=== PATIENT | female | born 1970 | race Caucasian/White ===

== ENCOUNTER 2020-01-23 07:51 | Outpatient (CLI) | payer BC, SELFPAY ==
--- NOTE | 2020-01-23 07:58 | MM_ITS ---
WS: [id number] BILATERAL DIGITAL SCREENING MAMMOGRAPHY WITH CAD CLINICAL INFORMATION: SCREENING HISTORY: Screening mammogram. No current complaints. COMPARISON: TECHNIQUE: Bilateral CC and MLO views. FINDINGS: Scattered fibroglandular densities bilaterally. No suspicious focal mass, asymmetry, calcifications, or architectural distortion. No evidence of malignancy. Biopsy clip left breast MM/[id number] IMPRESSION: BI-RADS: 2-Benign FOLLOW UP: 1 Year Follow-up Recommend return to annual screening mammography.
== END 2020-01-23 07:52 | disposition home or self-care (01) ==
LOC: RADSHAW 07:53
PROVIDERS: Family Provider Family Medicine; PCP Family Medicine; Visit Provider Obstetrics & Gynecology
DX: Z12.31 Encounter for screening mammogram for malignant neoplasm of breast (principal)
CPT/HCPCS: 77067

== ENCOUNTER → 2020-01-27 00:01 | Outpatient (BNVA) | payer BC, SELFPAY | PROVIDERS: Family Provider Family Medicine; PCP Family Medicine; Visit Provider Obstetrics & Gynecology | DX: Z12.4 Encounter for screening for malignant neoplasm of cervix (principal); Z30.9 Encounter for contraceptive management, unspecified | CPT/HCPCS: 88175 ==

== ENCOUNTER 2020-04-24 09:43 | Day surgery (SDC) | payer BC, SELFPAY ==
[2020-04-22 12:46] VITALS: BMI 31.7
--- NOTE | 2020-04-24 10:11 | ANES.PREANE2 ---
Pre-Anesthetic Assessment Pre-Anesthetic Assessment: Height/Weight: Height 1.63 m Weight 83.915 kg Proposed Procedure: Operation Date: 04/24/20 11:30 Proposed Procedures p Colonoscopy 69154 Z12.11(Not Applicable) - Agusto Cardoso MD Was Beta Roscoe taken within 24 hours: N/A Social: Social History: No alcohol and No tobacco Exam: Pre-Anes Outpt Exam: alert, oriented x 3, clear to auscultation bilaterally and regular rate & rhythm Airway: Submandibular: WNL Cervical ROM: WNL MP: 2 Dentition: Full History/ROS: No significant history except as noted Neuropsych: Neuropsych: Anxiety Anesthetic Plan: ASA status: 2 Anesthesia: MAC Risk of > 500 ml blood loss (7ml/kg in children): No PFSH Anesthesia PFSH: Medical History Anxiety Diagnosed in 2019 and being managed by PMD Dr. Carrion and is currently on [id number] states that this also helps with her hot flashes No pertinent past medical history Denies diabetes, asthma, hypertension, seizures, DVT/PE PCP: Dr. Carrion Surgical History S/P sinus surgery Done for sinusitis and had multiple polyps removed in June 2018. Status post surgical removal of ganglion cyst removed from left wrist as a child Family History Father Stroke Hypertension Prostate cancer Heart disease Denies family history of Colon cancer Ovarian cancer Diabetes Hyperlipidemia Breast cancer Uterine cancer Thyroid condition Social History (System 04/23/20 @ 14:30 by Annmarie Ramos) Smoking and tobacco status: never smoked Alcohol intake: current Alcohol intake frequency: few times a week Data Anesthesia Cardiac Studies: No Data to Display
[2020-04-24 11:04] VITALS: BP 118/89; PULSE 79; RESP 18; TEMP 36.1; O2SAT 99
[2020-04-24] MEDS: sodium chloride 0.9% 1,000 ML 30 ML IV (11:27)
--- NOTE | 2020-04-24 12:21 | W.PM.OPSFHP ---
Same Day Surgery H&P Indication for Procedure/HPI DATE OF PROCEDURE: April 24, 2020 CHIEF COMPLAINT/INDICATIONFOR SURGICAL PROCEDURE: Screening colonoscopy PREOP DIAGNOSIS: Screening colonoscopy PLANNED PROCEDRUE: Operation Date: 04/24/20 11:30 Proposed Procedures p Colonoscopy 81163 Z12.11(Not Applicable) - Agusto Cardoso MD Medications/Allergies* Home Medications Medication Instructions Recorded Confirmed Type omega-3 fatty acids [Fish Oil] 500 mg PO DAILY 04/24/20 04/24/20 History Allergies/Adverse Reactions Allergy/AdvReac Type Severity Reaction Status Date / Time No Known Allergies Allergy Verified 04/23/20 14:30 Current Medications: Generic Name Dose Route Start Last Admin Trade Name Freq PRN Reason Stop Dose Admin Sodium Chloride 1,000 mls @ 30 mls/hr 04/24/20 11:15 04/24/20 11:27 Sodium Chloride 0.9% IV 04/25/20 11:14 30 mls/hr .Q24H YAMIKLA Administration Pertinent History/Comorbid Conditions* Medical History (Updated 04/20/20 @ 17:46 by Murray Sinha MD) Anxiety Diagnosed in 2019 and being managed by PMD Dr. Carrion and is currently on [id number] states that this also helps with her hot flashes No pertinent past medical history Denies diabetes, asthma, hypertension, seizures, DVT/PE PCP: Dr. Carrion Surgical History (Updated 04/24/20 @ 12:21 by Agusto Cardoso MD) S/P sinus surgery Done for sinusitis and had multiple polyps removed in June 2018. Status post colonoscopy (04/24/20) Repeat in 10 years Status post surgical removal of ganglion cyst removed from left wrist as a child Family History (Updated 01/27/20 @ 10:41 by Saumya Iraheta, DANIEL) Prostate cancer Father Heart disease Father Hypertension Father Stroke Father Denies family history of Colon cancer Ovarian cancer Diabetes Hyperlipidemia Breast cancer Uterine cancer Thyroid condition Social History Smoking and tobacco status: never smoked Alcohol intake: current Alcohol intake frequency: few times a week Pertinent Exam Findings oriented x 3 and regular rate & rhythm Recommendations Surgery/Procedure today Coding Level of Care Code Acute Knowledge Management Advisor for Wilfredo Blake
[2020-04-24 12:23] VITALS: BP 109/85; PULSE 78; RESP 16; TEMP 36.1; O2SAT 100
[2020-04-24 12:43] VITALS: BP 126/95; PULSE 81; RESP 18; O2SAT 98
--- NOTE | 2020-04-24 13:34 | ANE.PACU2 ---
Inpatient post-anesthesia follow up: Airway intact: Yes Vital signs: Temperature 97 F Pulse Rate 81 Respiratory Rate 18 Blood Pressure 126/95 Pulse Oximetry 98 Oxygen Delivery Me thod Room Air Oxygen Flow Rate 2 Fraction of Inspir ed Oxygen Hydration adequate: Yes Nausea and vomiting: No Pain level: 1 Mental status: Baseline
== END 2020-04-24 12:58 | disposition home or self-care (01) ==
PROVIDERS: PCP Family Medicine; Visit Provider Surgery
PROC: 0DJD8ZZ Inspection of Lower Intestinal Tract, Via Natural or Artificial Opening Endoscopic (ICD-10-PCS; CPT 45378; principal; 2020-04-24 11:30)
DX: Z12.11 Encounter for screening for malignant neoplasm of colon (principal); K57.30 Diverticulosis of large intestine without perforation or abscess without bleeding; K64.8 Other hemorrhoids; F41.9 Anxiety disorder, unspecified
CPT/HCPCS: 45378; 96360; J7030

== ENCOUNTER → 2020-12-28 08:09 | Outpatient (BNVA) | payer OTHER, SELFPAY | PROVIDERS: PCP Family Medicine; Visit Provider Family Medicine | DX: Z13.6 Encounter for screening for cardiovascular disorders (principal); E66.9 Obesity, unspecified | CPT/HCPCS: 80053; 80061; 82306; 85025 ==

== ENCOUNTER 2021-10-07 07:36 | Outpatient (CLI) | payer OTHER, SELFPAY ==
--- NOTE | 2021-10-07 07:44 | MM_ITS ---
WS: [id number] BILATERAL SCREENING DIGITAL TOMOSYNTHESIS MAMMOGRAM WITH CAD HISTORY: SCREENING COMPARISON: 01/23/2020 and 08/02/2018 Bilateral CC and MLO views with tomosynthesis and synthetic mammography submitted. Computer aided det ection analyzed. Breast composition: There are scattered areas of fibroglandular density. No suspicious masses, microc alcifications or architectural distortion. Biopsy clip 3:00 LEFT breast. MM/[id number] IMPRESSION: BI-RADS: 2-Benign FOLLOW UP: 1 Year Follow-up
== END 2021-10-07 07:37 | disposition home or self-care (01) ==
PROVIDERS: PCP Family Medicine; Visit Provider Family Medicine
DX: Z12.31 Encounter for screening mammogram for malignant neoplasm of breast (principal)
CPT/HCPCS: 77063; 77067

== ENCOUNTER → 2022-05-23 16:19 | Outpatient (BNVA) | payer OTHER, SELFPAY | PROVIDERS: PCP Family Medicine; Visit Provider Family Medicine | DX: Z13.6 Encounter for screening for cardiovascular disorders (principal) | CPT/HCPCS: 80053; 80061; 84443; 85025 ==

== ENCOUNTER 2023-02-02 11:39 | Outpatient (CLI) | payer OTHER, SELFPAY ==
--- NOTE | 2023-02-02 11:42 | MM_ITS ---
WS: [id number] SCREENING DIGITAL TOMOSYNTHESIS MAMMOGRAM WITH CAD HISTORY: SCREENING COMPARISON: 10/07/2021 and 01/23/2020 Bilateral CC and MLO with tomosynthesis views submitted. Synthetic mammography reviewed. Computer aid ed detection analyzed. Breast composition: Biopsy clip in the upper outer quadrant of the LEFT breast. No residual mass or c alcification. No suspicious masses, microcalcifications or architectural distortion. IMPRESSION: MM/[id number] BI-RADS: 2-Benign FOLLOW UP: 1 Year Follow-up
== END 2023-02-02 11:40 | disposition home or self-care (01) ==
LOC: RAD 11:40
PROVIDERS: PCP Family Medicine; Visit Provider Family Medicine
DX: Z12.31 Encounter for screening mammogram for malignant neoplasm of breast (principal)
CPT/HCPCS: 77063; 77067

== ENCOUNTER → 2023-07-04 15:20 | Outpatient (BNVA) | payer OTHER, SELFPAY | PROVIDERS: PCP Family Medicine; Visit Provider Nurse Practitioner Women's Health | DX: N91.2 Amenorrhea, unspecified (principal) | CPT/HCPCS: 82670; 83001; 83002 ==

== ENCOUNTER → 2023-11-06 08:39 | Outpatient (BNVA) | payer OTHER, SELFPAY | PROVIDERS: PCP Family Medicine; Visit Provider Family Medicine | DX: Z00.00 Encounter for general adult medical examination without abnormal findings (principal); E66.9 Obesity, unspecified | CPT/HCPCS: 80053; 80061; 83036; 84443; 85025 ==

== ENCOUNTER 2024-04-15 07:53 | Outpatient (CLI) | payer OTHER, SELFPAY ==
--- NOTE | 2024-04-15 07:56 | MM_ITS ---
WS: [id number] BILATERAL SCREENING DIGITAL TOMOSYNTHESIS MAMMOGRAM WITH CAD HISTORY: SCREENING COMPARISON: 03/27/2022, 10/07/2021 Bilateral CC and MLO views with tomosynthesis and synthetic mammography submitted. Computer aided detection analyzed. Breast composition: The breasts are almost entirely fatty. No suspicious masses, microcalcifications or architectural distortion. Biopsy clip upper outer quadrant LEFT breast. No associated mass or calcifications. MM/MM scr BI tomosynthesis [id number] IMPRESSION: BI-RADS: 2 - Benign. FOLLOW UP: 1 Year Follow-up
== END 2024-04-15 07:54 | disposition home or self-care (01) ==
LOC: RAD 07:55
PROVIDERS: PCP Family Medicine; Visit Provider Family Medicine
DX: Z12.31 Encounter for screening mammogram for malignant neoplasm of breast (principal); R92.313 Mammographic fatty tissue density, bilateral breasts
CPT/HCPCS: 77063; 77067